=== PATIENT | male | born 2005 | race Asian ===

== ENCOUNTER 2024-05-28 18:11 | Emergency (ER) | payer BC ==
[~2024-05-28] VITALS: Ht 175.3 cm; Wt 62.6 kg
[2024-05-28 18:14] VITALS: BP_SYST 128; PULSE 100; RESP 17; TEMP 97.7; O2SAT 96
[2024-05-28] MEDS ORDERED: NAPR-1172 PO (21:17)
[2024-05-28] MEDS: PROPOFOL 200MG/ 20ML VIAL (DIPRIVAN) IV ONE (21:23)
[2024-05-28 21:50] VITALS: BP_SYST 134; PULSE 94; RESP 19; TEMP 99.1; O2SAT 100
== END 2024-05-28 21:50 | disposition home or self-care (01) ==
LOC: SED 18:11
DX: S43.014A Anterior dislocation of right humerus, initial encounter (principal); X58.XXXA Exposure to other specified factors, initial encounter; Y93.61 Activity, american tackle football; Y92.89 Other specified places as the place of occurrence of the external cause; Y99.8 Other external cause status
CPT/HCPCS: 99285; 23650; 73020; 73030; 99152; J2704